=== PATIENT | female | born 1945 | race Caucasian/White ===

== ENCOUNTER → 2025-09-09 10:57 | Outpatient (REF) | payer OTHER, SELFPAY | LOC: RAD 10:57 | PROVIDERS: ATTENDING PHYSICIAN Hospitalist; FAMILY PHYSICIAN Family Medicine; OTHER PHYSICIAN Internal Medicine Pulmonary Disease; OTHER PHYSICIAN Orthopaedic Surgery | DX: M06.09 Rheumatoid arthritis without rheumatoid factor, multiple sites (principal) | CPT/HCPCS: 76882 ==